=== PATIENT | female | born 1930 | race Caucasian/White ===

== ENCOUNTER 2017-02-22 22:41 | Observation (INO) | payer OTHER ==
[~2017-02-22] VITALS: Ht 149.9 cm; Wt 45.0 kg
[~2017-02-22 22:41] MED LIST: ADVA250A INH; ASPI81 PO; GABA100C4 PO; NITR.3 SL; PLAV75TA PO; TAB-TAB PO; TOPR25TA2 PO; VENTOLIN INHALER
[2017-02-22 22:48] VITALS: BP 197/81; PULSE 85; RESP 18; TEMP 98.3; O2SAT 92
--- NOTE | 2017-02-22 23:06 | PD ---
HPI Chief Complaint: Chest Pain Time Seen by Provider: 23:03 Travel History International Travel<30 days: No Contact w/Intl Traveler<30days: No Traveled to known affect area: No History of Present Illness HPI PCP IS RADHA, CARDIO IS [facility]. PT C/O CHEST PRESSURE, SUBSTERNAL, NONRAD, ONSET AT REST, ASSOC WITH DIAPHORESIS AND LASTED ABOUT 20MIN...CURRENTLY 0/10 (PT TOOK OWN ASA AND PLAVIX. PREVIOUS H/O 2 CARDIAC STENTS IN PAST PFSH Past Medical History Hx Anticoagulant Therapy: Yes Arthritis: Yes Asthma: Yes Autoimmune Disease: No Blood Disorders: No Heart Rhythm Problems: No Cancer: No Cardiac Catheterization: Yes Cardiovascular Problems: Yes High Cholesterol: No Chemotherapy: No Congestive Heart Failure: No Cerebrovascular Accident: No Diabetes: Yes (DIET CONTROLLED) Diminished Hearing: No Endocrine: No Glaucoma: Yes Genitourinary: No Headaches: Yes Hypertension: Yes Immune Disorder: No Musculoskeletal: Yes Neurologic: Yes Psychiatric: No Reproductive: No Respiratory: Yes Myocardial Infarction: Yes Tetanus Vaccination: < 5 Years Influenza Vaccination: No ?: Not Menopausal: Yes Past Surgical History Abdominal Surgery: No AICD: No Arteriovenous Shunt: No Cardiac Surgery: No Cholecystectomy: Yes Coronary Artery Bypass Graft: No Coronary Stent: Yes Ear Surgery: No Endocrine Surgery: No Eye Surgery: No Genitourinary Surgery: Yes (T-SLING SURGERY) Gynecologic Surgery: No Hysterectomy: Yes Insulin Pump: No Joint Replacement: No Oral Surgery: No Pacemaker: No Thoracic Surgery: No Other Surgery: Yes Social History Alcohol Use: No Tobacco Use: No Substance Use: No Allergies-Medications (Allergen,Severity, Reaction): Coded Allergies: Adhesives (Verified Allergy, Severe, 05/13/15) Naprosyn (Verified Allergy, Severe, 05/13/15) Neosporin (Verified Allergy, Severe, 05/13/15) Uncoded Allergies: MERTHIALATE (Allergy, Severe, RASH, 08/06/07) JUNIPER PRODUCTS (Allergy, Mild, Rash, 03/07/05) Reported Meds & Prescriptions Reported Meds & Active Scripts Active Reported Tums (Calcium Carbonate (Antacid)) 500 Mg Chew 500 Mg CHEW BID Multiple Vitamin 1 Tab 1 Tab PO DAILY Singulair (Montelukast Sodium) 10 Mg Tab 10 Mg PO HS Nitrostat SL (Nitroglycerin) 0.4 Mg Subl 0.4 Mg SL Lipitor (Atorvastatin Calcium) 80 Mg Tab 80 Mg PO HS Metoprolol Tartrate 25 Mg Tab 25 Mg PO BID Gabapentin 100 Mg Cap 100 Mg PO BID Advair Diskus Inh (Fluticasone-Salmeterol Inh) 250-50 Mcg/Blist Aer 1 Puff INH BID Rinse mouth after use. Plavix (Clopidogrel Bisulfate) 75 Mg Tab 75 Mg PO DAILY Aspirin 81 (Aspirin) 81 Mg Tabdr 81 Mg PO DAILY [Ventolin Inhaler] Review of Systems Except as stated in HPI: all other systems reviewed are Neg Cardiovascular: Positive: Chest Pain or Discomfort Physical Exam Narrative GENERAL: SKIN: Warm and dry. HEAD: Atraumatic. Normocephalic. EYES: Pupils equal and round. No scleral icterus. No injection or drainage. ENT: No nasal bleeding or discharge. Mucous membranes pink and moist. NECK: Trachea midline. No JVD. CARDIOVASCULAR: Regular rate and rhythm. RESPIRATORY: No accessory muscle use. Clear to auscultation. Breath sounds equal bilaterally. GASTROINTESTINAL: Abdomen soft, non-tender, nondistended. Hepatic and splenic margins not palpable. MUSCULOSKELETAL: Extremities without clubbing, cyanosis, or edema. No obvious deformities. NEUROLOGICAL: Awake and alert. No obvious cranial nerve deficits. Motor grossly within normal limits. Five out of 5 muscle strength in the arms and legs. Normal speech. PSYCHIATRIC: Appropriate mood and affect; insight and judgment normal. Data Data Last Documented VS Vital Signs Date Time Temp Pulse Resp B/P Pulse Ox O2 Delivery O2 Flow Rate FiO2 02/23/17 00:39 71 16 141/76 95 Nasal Cannula 2 02/22/17 22:48 98.3 Orders Electrocardiogram (02/22/17 23:03) B-Type Natriuretic Peptide (02/22/17 23:03) Ckmb (Isoenzyme) Profile (02/22/17 23:03) Complete Blood Count With Diff (02/22/17 23:03) Comprehensive Metabolic Panel (02/22/17 23:03) D-Dimer (02/22/17 23:03) Magnesium (Mg) (02/22/17 23:03) Prothrombin Time / Inr (Pt) (02/22/17 23:03) Act Partial Throm Time (Ptt) (02/22/17 23:03) Troponin I (02/22/17 23:03) Chest, Single Ap (02/22/17 23:03) Ecg Monitoring (02/22/17 23:03) Bilateral Bp Monitoring (02/22/17 23:03) Iv Access Insert/Monitor (02/22/17 23:03) Oximetry (02/22/17 23:03) Oxygen Administration (02/22/17 23:03) Sodium Chloride 0.9% Flush (Ns Flush) (02/22/17 23:15) Enalaprilat Inj (Vasotec Inj) (02/22/17 23:30) CKMB (02/22/17 23:20) CKMB% (02/22/17 23:20) Admit Order (Ed Use Only) (02/23/17 01:32) Labs Laboratory Tests Test 02/22/17 23:20 Prothrombin Time 10.7 SEC Prothromb Time International 1.0 RATIO Ratio Activated Partial 23.8 SEC Thromboplast Time D-Dimer Quantitative (PE/DVT) 1.17 MG/L FEU White Blood Count 7.3 TH/MM3 Red Blood Count 4.10 MIL/MM3 Hemoglobin 13.5 GM/DL Hematocrit 41.3 % Mean Corpuscular Volume 100.8 FL Mean Corpuscular Hemoglobin 33.0 PG Mean Corpuscular Hemoglobin 32.8 % Concent Red Cell Distribution Width 13.0 % Platelet Count 233 TH/MM3 Mean Platelet Volume 8.6 FL Neutrophils (%) (Auto) 56.0 % Lymphocytes (%) (Auto) 21.8 % Monocytes (%) (Auto) 11.8 % Eosinophils (%) (Auto) 9.6 % Basophils (%) (Auto) 0.8 % Neutrophils # (Auto) 4.1 TH/MM3 Lymphocytes # (Auto) 1.6 TH/MM3 Monocytes # (Auto) 0.9 TH/MM3 Eosinophils # (Auto) 0.7 TH/MM3 Basophils # (Auto) 0.1 TH/MM3 CBC Comment DIFF FINAL Differential Comment Sodium Level 140 MEQ/L Potassium Level 4.5 MEQ/L Chloride Level 103 MEQ/L Carbon Dioxide Level 32.9 MEQ/L Anion Gap 4 MEQ/L Blood Urea Nitrogen 21 MG/DL Creatinine 0.97 MG/DL Estimat Glomerular Filtration 54 ML/MIN Rate Random Glucose 107 MG/DL Calcium Level 8.7 MG/DL Magnesium Level 2.0 MG/DL Total Bilirubin 0.4 MG/DL Aspartate Amino Transf 38 U/L (AST/SGOT) Alanine Aminotransferase 29 U/L (ALT/SGPT) Alkaline Phosphatase 84 U/L Total Creatine Kinase 166 U/L Creatine Kinase MB 2.7 NG/ML Troponin I LESS THAN 0.02 NG/ML B-Type Natriuretic Peptide 66 PG/ML Total Protein 8.2 GM/DL Albumin 3.1 GM/DL MDM Medical Decision Making Medical Screen Exam Complete: Yes Emergency Medical Condition: Yes Medical Record Reviewed: Yes Interpretation(s) NSR 77, LBBB, NO CONCORDANCE Differential Diagnosis WI V NONSTEMI V PTX V PNA Narrative Course PT HAS HIGH RISK FACTORS AND PRESENTS WITH ACS LIKE CP, CXR DID NOT SHOW PTX OR PNA. WILL ADMIT FOR OBS CP R/O WI TO CARD HAND Diagnosis Primary Impression: CP R/O WI Admitting Information Admitting Physician Requests: Neno Alves MD Feb 22, 2017 23:06
[2017-02-22] MEDS ORDERED: SODIUM CHLORIDE 0.9% FLUSH 10 ML FLUSH IVF PRN (23:15)
[2017-02-22] MEDS ORDERED: ENALAPRILAT 1.25 MG/ML VIAL IV PUSH ONE (23:30)
[2017-02-22 23:37] LABS: AUTOMATED NEUTROPHIL # 4.1 TH/MM3 (1.8-7.7); BASOPHIL # 0.1 TH/MM3 (0-0.2); BASOPHIL % 0.8 % (0.0-2.0); EOSINOPHIL # 0.7 TH/MM3 (0-0.4); EOSINOPHIL % 9.6 % (0.0-4.0); HEMATOCRIT 41.3 % (35.0-46.0); HEMO FLAGS DIFF FINAL; LYMPH % 21.8 % (9.0-44.0); LYMPHOCYTE # 1.6 TH/MM3 (1.0-4.8); MEAN CELL VOLUME 100.8 FL (80.0-100.0); MEAN CORPUSCULAR HGB CONC 32.8 % (32.0-36.0); MONO % 11.8 % (0.0-8.0); PLATELET COUNT 233 TH/MM3 (150-450); WHITE BLOOD COUNT 7.3 TH/MM3 (4.0-11.0)
[2017-02-22 23:51] VITALS: RESP 16; O2SAT 97
[2017-02-22 23:55] LABS: APTT (PATIENT) 23.8 SEC (24.3-30.1); PROTHROMBIN TIME - PATIENT 10.7 SEC (9.8-11.6)
[2017-02-22 23:57] LABS: ALT (GPT) 29 U/L (10-53); ANION GAP 4 MEQ/L (5-15); AST (GOT) 38 U/L (15-37); BICARBONATE 32.9 MEQ/L (21.0-32.0); BLOOD UREA NITROGEN 21 MG/DL (7-18); CHLORIDE 103 MEQ/L (98-107); GLOMERULAR FILTRATION RATE 54 ML/MIN (>89); SODIUM (NA) 140 MEQ/L (136-145)
[2017-02-22 23:58] VITALS: BP_SYST 153; BP_DIAS 67; BP_DIAS 69
[2017-02-22 23:58] LABS: POTASSIUM 4.5 MEQ/L (3.5-5.1)
[2017-02-23 00:03] LABS: ALKALINE PHOSPHATASE 84 U/L (45-117); CREATINE KINASE 166 U/L (26-192); TOTAL BILIRUBIN ADULT 0.4 MG/DL (0.2-1.0)
[2017-02-23] MEDS ORDERED: PLAV75TA29 PO (00:10)
[2017-02-23] MEDS ORDERED: ADVA250A INH (00:10)
[2017-02-23] MEDS ORDERED: GABA100C4 PO (00:10)
[2017-02-23] MEDS ORDERED: METO25TA3 PO (00:10)
[2017-02-23] MEDS ORDERED: ASPI-110 PO (00:10)
[2017-02-23 00:17] LABS: CKMB 2.7 NG/ML (0.5-3.6)
--- NOTE | 2017-02-23 00:23 | RADRPT ---
EXAM DATE/TIME: 02/22/2017 23:36 [facility] COMPARISON: CHEST SINGLE AP, May 13, 2015, 23:19. INDICATIONS : Chest pain MEDICAL HISTORY : Myocardial infarction. SURGICAL HISTORY : : Peripheral vascular stent. ENCOUNTER: Initial ACUITY: 1 day PAIN SCORE: 0/10 LOCATION: chest FINDINGS: A single view of the chest demonstrates the lungs to be symmetrically aerated with worsening intersti tial changes probably representing some degree of fibrosis. There is some pleural calcifications late rally in the apices bilaterally, unchanged. No superimposed acute infiltrate. Possible old fracture d eformity in a lateral left rib. CONCLUSION: 1. Stable biapical pleural calcification. 2. Worsening bilateral fibrotic changes. 3. No superimposed acute infiltrate. Manuelito Washington MD on February 23, 2017 at 0:19 Board Certified Radiologist. This report was verified electronically.
[2017-02-23 00:39] VITALS: BP 141/76; PULSE 71; RESP 16; O2SAT 95
[2017-02-23] MEDS ORDERED: METOPROLOL TARTRATE 25 MG TAB PO SCH (01:45)
[2017-02-23] MEDS ORDERED: ONDANSETRON HCL 4 MG/2 ML VIAL IV PRN (01:45)
[2017-02-23] MEDS ORDERED: SODIUM CHLORIDE 0.9% FLUSH 10 ML FLUSH IV FLUSH PRN (01:45)
[2017-02-23] MEDS ORDERED: NITR0.4S SL (02:48)
[2017-02-23] MEDS ORDERED: LIPI80TA PO (02:48)
[2017-02-23] MEDS ORDERED: MONT10TA2 PO (02:50)
[2017-02-23] MEDS ORDERED: MULTTAB67 PO (02:50)
[2017-02-23] MEDS ORDERED: TUMS500C CHEW (02:51)
[2017-02-23 02:53] LABS: CREATINE KINASE 147 U/L (26-192)
[2017-02-23 03:05] LABS: CKMB 2.5 NG/ML (0.5-3.6)
[2017-02-23 05:53] VITALS: BP 167/72; PULSE 67; RESP 18; TEMP 97.9; O2SAT 98
[2017-02-23 06:05] VITALS: O2SAT 97
[2017-02-23 06:39] LABS: CREATINE KINASE 131 U/L (26-192)
[2017-02-23 06:58] LABS: CKMB 2.4 NG/ML (0.5-3.6)
[2017-02-23 07:30] VITALS: BP 168/72; PULSE 67; RESP 16; TEMP 97.5; O2SAT 97
[2017-02-23 08:00] VITALS: PULSE 73
[2017-02-23] MEDS ORDERED: NITROGLYCERIN 0.4 MG SL 25 TABS/BTL SL PRN (08:15)
[2017-02-23] MEDS ORDERED: ACETAMINOPHEN 500 MG CPLT PO PRN (08:15)
[2017-02-23] MEDS ORDERED: ASPIRIN 325 MG TAB PO SCH (09:00)
[2017-02-23] MEDS ORDERED: FAMOTIDINE 20 MG TAB PO SCH (09:00)
[2017-02-23] MEDS ORDERED: SODIUM CHLORIDE 0.9% FLUSH 10 ML FLUSH IV FLUSH SCH (09:00)
--- NOTE | 2017-02-23 10:56 | HHI.HP ---
HPI Primary Care Physician Cristhian Vargas MD Chief Complaint Sharp line of pain on skin of right chest History of Present Illness 86 y/o lady with known CAD s/p AMI 4 years ago. She was evaluated and [address] Zamarripa at [facility]. She is subsequently followed regularly by Dr. Evans and has been quite stable. Last night about 9 she felt sudden sharp pain described as "a line of pain on my skin" on the right chest. this was 4/ 10 severity and lasted off and on about 15 minutes. There were no prec or rel factors. She got up from watching TV and went to the kitchen and then noted some sweating and an unsure feeling. This sweating scared her because that is what she remembers from her heart attack four years ago. The pain subsequently went away as did the sweating and she feels fine now. She admits to anxiety about the pain. She also has severe vascular disease and has had interventions by Dr. Enoch White to her R&L groin and L carotid with a stent. Review of Systems Respiratory: COMPLAINS OF: Shortness of breath Cardiovascular: COMPLAINS OF: See HPI, Chest pain Past Family Social History Allergies: Coded Allergies: Adhesives (Verified Allergy, Severe, 05/13/15) Naprosyn (Verified Allergy, Severe, 05/13/15) Neosporin (Verified Allergy, Severe, 05/13/15) Uncoded Allergies: MERTHIALATE (Allergy, Severe, RASH, 08/06/07) JUNIPER PRODUCTS (Allergy, Mild, Rash, 03/07/05) Past Medical History arthritis asthma, COPD DM HTN glaucoma Past Surgical History Cholecystectomy T Sling Hysterectomy Stent L carotid Stent L groin, dilation R groin Reported Medications Reported Meds & Active Scripts Active Reported Tums (Calcium Carbonate (Antacid)) 500 Mg Chew 500 Mg CHEW BID Multiple Vitamin 1 Tab 1 Tab PO DAILY Singulair (Montelukast Sodium) 10 Mg Tab 10 Mg PO HS Nitrostat SL (Nitroglycerin) 0.4 Mg Subl 0.4 Mg SL Lipitor (Atorvastatin Calcium) 80 Mg Tab 80 Mg PO HS Metoprolol Tartrate 25 Mg Tab 25 Mg PO BID Gabapentin 100 Mg Cap 100 Mg PO BID Advair Diskus Inh (Fluticasone-Salmeterol Inh) 250-50 Mcg/Blist Aer 1 Puff INH BID Rinse mouth after use. Plavix (Clopidogrel Bisulfate) 75 Mg Tab 75 Mg PO DAILY Aspirin 81 (Aspirin) 81 Mg Tabdr 81 Mg PO DAILY [Ventolin Inhaler] Active Ordered Medications Current Medications Medications (Trade) Dose Ordered Sig/Renita Route Start Time Stop Time Status Last Admin (NS Flush) 2 ml UNSCH PRN IVF 02/22/17 23:15 (NS Flush) 2 ml UNSCH PRN IV FLUSH 02/23/17 01:45 (NS Flush) 2 ml BID IV FLUSH 02/23/17 09:00 02/23/17 08:31 (Zofran Inj) 4 mg Q6H PRN IV 02/23/17 01:45 (Pepcid) 20 mg BID PO 02/23/17 09:00 02/23/17 08:30 (Lopressor) 25 mg Q12H PO 02/23/17 01:45 02/23/17 02:18 (Aspirin) 325 mg DAILY PO 02/23/17 09:00 02/23/17 08:30 (Tylenol) 500 mg Q4H PRN PO 02/23/17 08:15 (Nitrostat Sl) 0.4 mg Q5M PRN SL 02/23/17 08:15 Family History father of CVA age 76 Mother of [place] and CVA age 87 Social History Stopped smoking in 2002 prior to that 08/21 PPD Physical Exam Vital Signs Vital Signs Date Time Temp Pulse Resp B/P Pulse Ox O2 Delivery O2 Flow Rate FiO2 02/23/17 08:00 73 02/23/17 07:30 97.5 67 16 168/72 97 02/23/17 07:18 Nasal Cannula 2.00 02/23/17 06:05 97 Nasal Cannula 2.00 02/23/17 05:53 97.9 67 18 167/72 98 02/23/17 00:39 71 16 141/76 95 Nasal Cannula 2 02/22/17 23:58 153/69 153/67 02/22/17 23:51 97 Room Air 02/22/17 23:51 16 97 Room Air 02/22/17 22:52 Room Air 02/22/17 22:48 98.3 85 18 197/81 92 Physical Exam GEN WNWD THIN SKIN WITH SL BRUISING HEENT GAGAN EOMI IOL BILATERAL NECK SUPPLE, BRUIT R SOFT L CHEST CLEAR BUT DECREASED BS WITHOUT RWR CV RSR NO GR BUT SOFT 1/6 S M ABD SOFT NT NO MGR EXT DISTAL PULSED DECREASED BUT PALP NEURO MOTOR INTACT AND EQUAL, CRANIAL GOOD, MEMORY INTACT Laboratory Laboratory Tests Test 02/22/17 02/23/17 02/23/17 23:20 02:20 05:45 Prothrombin Time 10.7 Prothromb Time International 1.0 Ratio Activated Partial 23.8 Thromboplast Time D-Dimer Quantitative (PE/DVT) 1.17 White Blood Count 7.3 Red Blood Count 4.10 Hemoglobin 13.5 Hematocrit 41.3 Mean Corpuscular Volume 100.8 Mean Corpuscular Hemoglobin 33.0 Mean Corpuscular Hemoglobin 32.8 Concent Red Cell Distribution Width 13.0 Platelet Count 233 Mean Platelet Volume 8.6 Neutrophils (%) (Auto) 56.0 Lymphocytes (%) (Auto) 21.8 Monocytes (%) (Auto) 11.8 Eosinophils (%) (Auto) 9.6 Basophils (%) (Auto) 0.8 Neutrophils # (Auto) 4.1 Lymphocytes # (Auto) 1.6 Monocytes # (Auto) 0.9 Eosinophils # (Auto) 0.7 Basophils # (Auto) 0.1 CBC Comment DIFF FINAL Differential Comment Sodium Level 140 Potassium Level 4.5 Chloride Level 103 Carbon Dioxide Level 32.9 Anion Gap 4 Blood Urea Nitrogen 21 Creatinine 0.97 Estimat Glomerular Filtration 54 Rate Random Glucose 107 Calcium Level 8.7 Magnesium Level 2.0 Total Bilirubin 0.4 Aspartate Amino Transf 38 (AST/SGOT) Alanine Aminotransferase 29 (ALT/SGPT) Alkaline Phosphatase 84 Total Creatine Kinase 166 147 131 Creatine Kinase MB 2.7 2.5 2.4 Troponin I LESS THAN 0.02 LESS THAN 0.02 LESS THAN 0.02 B-Type Natriuretic Peptide 66 Total Protein 8.2 Albumin 3.1 Result Diagram: 02/22/17 2320 02/22/17 232 Imaging INCREASING PULMONARY FIBROSIS Course HAS R/O FOR ACUTE ISCHEMIA AND IS PAIN FREE Assessment and Plan Assessment and Plan 1. KNOWN CAD 2. ATYPICAL CP SHE HAS RULED OUT FOR ACUTE ISCHEMIA AND IS FOLLOWED CLOSELY BY DR. EVANS SO FU THIS COMING WEEK IS FELT TO BE APPROPRIATE 3. PERIPHERAL VASCULAR DISEASE POST INTERVENTION BY DR WHITE 4. CAD POST INTERVENTION 5. DM 6. COPD 7. GLAUCOMA Dhiraj Walls MD Feb 23, 2017 10:56
[2017-02-23 11:31] VITALS: BP 153/66; PULSE 70; RESP 16; TEMP 97.7; O2SAT 97
--- NOTE | 2017-02-23 11:38 | HHI.DCPOC ---
Discharge Care Plan Diagnosis: (1) Atypical chest pain (2) Hx of coronary artery disease Goals to Promote Your Health * To prevent worsening of your condition and complications * To maintain your health at the optimal level Directions to Meet Your Goals Take your medications as prescribed Follow your dietary instruction Follow activity as directed Keep your appointments as scheduled Take your immunizations and boosters as scheduled If your symptoms worsen call your PCP, if no PCP go to Urgent Care Center or Emergency Room Smoking is Dangerous to Your Health. Avoid second hand smoke Call the 24-hour hour crisis hotline for domestic abuse at Maty MartiniP Feb 23, 2017 11:38
--- NOTE | 2017-02-23 13:03 | EKG ---
Date Performed: 02/23/2017 Time Performed: 05:59:42 PTAGE: 86 years EKG: Sinus rhythm LEFT BUNDLE BRANCH BLOCK ABNORMAL ECG PREVIOUS TRACING : 02/23/2017 02.21 Since previous tracing, no significant change noted DOCTOR: Keo Coy Interpretating Date/Time 02/23/2017 13:01:25
--- NOTE | 2017-02-23 13:04 | EKG ---
Date Performed: 02/23/2017 Time Performed: 02:21:51 PTAGE: 86 years EKG: Sinus rhythm LEFT BUNDLE BRANCH BLOCK ABNORMAL ECG PREVIOUS TRACING : 02/22/2017 22.51 Since previous tracing, no significant change noted DOCTOR: Keo Coy Interpretating Date/Time 02/23/2017 13:02:32
--- NOTE | 2017-02-23 13:06 | EKG ---
Date Performed: 02/22/2017 Time Performed: 22:51:33 PTAGE: 86 years EKG: Sinus rhythm LEFT BUNDLE BRANCH BLOCK ABNORMAL ECG PREVIOUS TRACING : 05/14/2015 05.14 Since previous tracing, no significant change noted DOCTOR: Keo Coy Interpretating Date/Time 02/23/2017 13:04:57
== END 2017-02-23 12:10 | disposition home or self-care (01) ==
LOC: NEPC 22:41 → NEDA 02-23 01:34 → NEPFCDU 02-23 02:31
PROVIDERS: ADMIT Internal Medicine Interventional Cardiology; ATTEND Internal Medicine Interventional Cardiology
DX: R07.89 Other chest pain (principal); I25.10 Atherosclerotic heart disease of native coronary artery without angina pectoris; R61 Generalized hyperhidrosis; F41.9 Anxiety disorder, unspecified; R06.02 Shortness of breath; I44.7 Left bundle-branch block, unspecified; R94.31 Abnormal electrocardiogram [ECG] [EKG]; J94.8 Other specified pleural conditions; J84.10 Pulmonary fibrosis, unspecified; R09.89 Other specified symptoms and signs involving the circulatory and respiratory systems; I10 Essential (primary) hypertension; I25.2 Old myocardial infarction; I73.9 Peripheral vascular disease, unspecified; E11.9 Type 2 diabetes mellitus without complications; J44.9 Chronic obstructive pulmonary disease, unspecified; H40.9 Unspecified glaucoma; M19.90 Unspecified osteoarthritis, unspecified site; Z95.5 Presence of coronary angioplasty implant and graft; Z79.899 Other long term (current) drug therapy; Z79.82 Long term (current) use of aspirin; Z79.02 Long term (current) use of antithrombotics/antiplatelets; Z87.891 Personal history of nicotine dependence
CPT/HCPCS: 71010; 80053; 82550; 82552; 83735; 83880; 84484; 85025; 85379; 85610; 85730; 93005; 99285; G0378

== ENCOUNTER 2017-04-13 10:36 | Observation (INO) | payer OTHER ==
[~2017-04-13] VITALS: Ht 149.9 cm; Wt 44.1 kg
[2017-04-13] VITALS (12 sets, daily range): BP systolic 86–177; BP diastolic 42–73; PULSE 63–83; RESP 12–17; TEMP 97.8–98.6; O2SAT 96–99
[~2017-04-13 10:36] MED LIST changes: +ASPI-110 PO; -ASPI81 PO; +LIPI80TA PO; +METO25TA3 PO; +MONT10TA2 PO; +MULTTAB67 PO; -NITR.3 SL; +NITR0.4S SL; -PLAV75TA PO; +PLAV75TA29 PO; -TAB-TAB PO; -TOPR25TA2 PO; +TUMS500C CHEW
[2017-04-13] MEDS ORDERED: SODIUM CHLORIDE 0.9% FLUSH 10 ML FLUSH IVF PRN (11:15)
--- NOTE | 2017-04-13 11:16 | PD ---
HPI Chief Complaint: Chest Pain Time Seen by Provider: 11:02 Travel History International Travel<30 days: No Contact w/Intl Traveler<30days: No Traveled to known affect area: No History of Present Illness HPI This patient called paramedics because she was feeling weak and shaky. Duration one day. She reports that yesterday she had some discomfort in her chest rather diffusely. Not pleuritic or exertional. That has resolved and did not recur today. Has history of CAD and 4 stents. Symptoms severity is moderate. No alleviating factors. Fire department thought she was a STEMI alert but further evaluation she clearly is not a STEMI alert. Her EKG is the same as it was at last visit. Her left bundle-branch block is not new. She is absolutely chest pain-free and not a STEMI. PFSH Past Medical History Hx Anticoagulant Therapy: Yes Arthritis: Yes Asthma: Yes Autoimmune Disease: No Blood Disorders: No Heart Rhythm Problems: No Cancer: No Cardiac Catheterization: Yes Cardiovascular Problems: Yes High Cholesterol: No Chemotherapy: No Congestive Heart Failure: No Cerebrovascular Accident: No Diabetes: Yes Diminished Hearing: No Endocrine: No Glaucoma: Yes Genitourinary: No Headaches: Yes Hypertension: Yes Immune Disorder: No Musculoskeletal: Yes Neurologic: Yes Psychiatric: No Reproductive: No Respiratory: Yes Myocardial Infarction: Yes ?: Not Menopausal: Yes Past Surgical History Abdominal Surgery: No AICD: No Arteriovenous Shunt: No Cardiac Surgery: No Cholecystectomy: Yes Coronary Artery Bypass Graft: No Coronary Stent: Yes Ear Surgery: No Endocrine Surgery: No Eye Surgery: No Genitourinary Surgery: Yes (T-SLING SURGERY) Gynecologic Surgery: No Hysterectomy: Yes Insulin Pump: No Joint Replacement: No Oral Surgery: No Pacemaker: No Thoracic Surgery: No Other Surgery: Yes Social History Alcohol Use: No Tobacco Use: No Substance Use: No Allergies-Medications (Allergen,Severity, Reaction): Coded Allergies: adhesive (Unverified Allergy, Severe, 04/13/17) bacitracin (Unverified Allergy, Severe, 04/13/17) gramicidin D (Unverified Allergy, Severe, 04/13/17) naproxen (Unverified Allergy, Severe, 04/13/17) neomycin (Unverified Allergy, Severe, 04/13/17) polymyxin B (Unverified Allergy, Severe, 04/13/17) latex (Verified Allergy, Mild, Rash, 04/13/17) Uncoded Allergies: MERTHIALATE (Allergy, Severe, RASH, 08/06/07) JUNIPER PRODUCTS (Allergy, Mild, Rash, 03/07/05) Reported Meds & Prescriptions Reported Meds & Active Scripts Active Reported Tums (Calcium Carbonate (Antacid)) 500 Mg Chew 500 Mg CHEW BID Multiple Vitamin 1 Tab 1 Tab PO DAILY Singulair (Montelukast Sodium) 10 Mg Tab 10 Mg PO HS Nitrostat SL (Nitroglycerin) 0.4 Mg Subl 0.4 Mg SL Lipitor (Atorvastatin Calcium) 80 Mg Tab 80 Mg PO HS Metoprolol Tartrate 25 Mg Tab 25 Mg PO BID Gabapentin 100 Mg Cap 100 Mg PO BID Advair Diskus Inh (Fluticasone-Salmeterol Inh) 250-50 Mcg/Blist Aer 1 Puff INH BID Rinse mouth after use. Plavix (Clopidogrel Bisulfate) 75 Mg Tab 75 Mg PO DAILY Aspirin 81 (Aspirin) 81 Mg Tabdr 81 Mg PO DAILY [Ventolin Inhaler] Review of Systems General / Constitutional: No: Fever Eyes: No: Visual changes HENT: No: Headaches Cardiovascular: Positive: Chest Pain or Discomfort Respiratory: No: Shortness of Breath Gastrointestinal: No: Abdominal Pain Genitourinary: No: Dysuria Musculoskeletal: Positive: Weakness, No: Pain Skin: No Rash Neurologic: Positive: Weakness Psychiatric: No: Depression Endocrine: No: Polydipsia Hematologic/Lymphatic: No: Easy Bruising Physical Exam Narrative GENERAL: Well-nourished, well-developed patient in no apparent distress. SKIN: Focused skin assessment reveals no rash and nodules. Skin is Warm and dry. HEAD: Atraumatic. Normocephalic. EYES: Pupils equal and round. No scleral icterus. No injection or drainage. ENT: No nasal bleeding or discharge. Mucous membranes pink and moist. NECK: Trachea midline. No JVD. CARDIOVASCULAR: Regular rate and rhythm. No murmur appreciated. RESPIRATORY: No accessory muscle use. Clear to auscultation. Breath sounds equal bilaterally. GASTROINTESTINAL: Abdomen soft, non-tender, nondistended. Hepatic and splenic margins not palpable. MUSCULOSKELETAL: No obvious deformities. No clubbing. No cyanosis. No edema. NEUROLOGICAL: Awake and alert. No obvious cranial nerve deficits. Motor grossly within normal limits. Normal speech. PSYCHIATRIC: Appropriate mood and affect; insight and judgment normal. Data Data Last Documented VS Vital Signs Date Time Temp Pulse Resp B/P (MAP) Pulse Ox O2 Delivery O2 Flow Rate FiO2 04/13/17 13:03 68 16 169/70 (103) 99 04/13/17 11:20 Nasal Cannula 1.00 04/13/17 11:12 97.9 Orders Orders Electrocardiogram (04/13/17 11:11) Basic Metabolic Panel (Bmp) (04/13/17 11:11) Ckmb (Isoenzyme) Profile (04/13/17 11:11) Complete Blood Count With Diff (04/13/17 11:11) Prothrombin Time / Inr (Pt) (04/13/17 11:11) Act Partial Throm Time (Ptt) (04/13/17 11:11) Troponin I (04/13/17 11:11) Chest, Single Ap (04/13/17 11:11) Ecg Monitoring (04/13/17 11:11) Iv Access Insert/Monitor (04/13/17 11:11) Oximetry (04/13/17 11:11) Sodium Chloride 0.9% Flush (Ns Flush) (04/13/17 11:15) CKMB (04/13/17 11:00) CKMB% (04/13/17 11:00) Admit Order (Ed Use Only) (04/13/17 13:12) Labs Laboratory Tests Test 04/13/17 11:00 White Blood Count 9.6 TH/MM3 Red Blood Count 3.88 MIL/MM3 Hemoglobin 13.3 GM/DL Hematocrit 39.1 % Mean Corpuscular Volume 100.8 FL Mean Corpuscular Hemoglobin 34.1 PG Mean Corpuscular Hemoglobin Concent 33.9 % Red Cell Distribution Width 12.4 % Platelet Count 257 TH/MM3 Mean Platelet Volume 8.1 FL Neutrophils (%) (Auto) 76.6 % Lymphocytes (%) (Auto) 12.5 % Monocytes (%) (Auto) 7.5 % Eosinophils (%) (Auto) 2.8 % Basophils (%) (Auto) 0.6 % Neutrophils # (Auto) 7.4 TH/MM3 Lymphocytes # (Auto) 1.2 TH/MM3 Monocytes # (Auto) 0.7 TH/MM3 Eosinophils # (Auto) 0.3 TH/MM3 Basophils # (Auto) 0.1 TH/MM3 CBC Comment DIFF FINAL Differential Comment Prothrombin Time 11.0 SEC Prothromb Time International Ratio 1.0 RATIO Activated Partial Thromboplast Time 27.6 SEC Blood Urea Nitrogen 13 MG/DL Creatinine 0.85 MG/DL Random Glucose 95 MG/DL Calcium Level 8.5 MG/DL Sodium Level 135 MEQ/L Potassium Level 4.1 MEQ/L Chloride Level 98 MEQ/L Carbon Dioxide Level 29.5 MEQ/L Anion Gap 8 MEQ/L Estimat Glomerular Filtration Rate 63 ML/MIN Total Creatine Kinase 110 U/L Creatine Kinase MB 3.0 NG/ML Troponin I LESS THAN 0.02 NG/ML MDM Medical Decision Making Medical Screen Exam Complete: Yes Emergency Medical Condition: Yes Medical Record Reviewed: Yes Differential Diagnosis STEMI alert, ACS, GERD, anxiety Narrative Course I have reviewed the patient's electronic medical record. Reviewed her February admission for chest pain She had negative enzymes 3 and discharged, no stress testing done IV placed I reviewed the EKG which shows sinus rhythm with left bundle-branch block which is chronic. I reviewed the chest x-ray is stable Extended cardiac monitoring shows sinus rhythm without ectopy CBC is normal Metabolic profile is normal CK is normal Troponin is normal Coagulation studies are normal Patient had aspirin and Plavix today. Still pain free. ER workup is negative. She did have 3:30 minutes spells of chest discomfort yesterday I'm going to place her in the chest pain center to rule out cardiac cause of her symptoms. I did place a call to her contracts paralegal Dr. Iván Evans to discuss but we are told by his office that he is unavailable. Diagnosis Primary Impression: Atypical chest pain Additional Impression: Hx of coronary artery disease Admitting Information Admitting Physician Requests: Observation Paul Dixon MD Apr 13, 2017 11:16
[2017-04-13 11:51] LABS: AUTOMATED NEUTROPHIL # 7.4 TH/MM3 (1.8-7.7); BASOPHIL # 0.1 TH/MM3 (0-0.2); BASOPHIL % 0.6 % (0.0-2.0); EOSINOPHIL # 0.3 TH/MM3 (0-0.4); EOSINOPHIL % 2.8 % (0.0-4.0); HEMATOCRIT 39.1 % (35.0-46.0); HEMO FLAGS DIFF FINAL; LYMPH % 12.5 % (9.0-44.0); LYMPHOCYTE # 1.2 TH/MM3 (1.0-4.8); MEAN CELL VOLUME 100.8 FL (80.0-100.0); MEAN CORPUSCULAR HEMOGLOBIN 34.1 PG (27.0-34.0); MEAN CORPUSCULAR HGB CONC 33.9 % (32.0-36.0); MONO % 7.5 % (0.0-8.0); NEUT % 76.6 % (16.0-70.0); PLATELET COUNT 257 TH/MM3 (150-450); RED BLOOD COUNT 3.88 MIL/MM3 (4.00-5.30); RED CELL DISTRIBUTION WIDTH 12.4 % (11.6-17.2); WHITE BLOOD COUNT 9.6 TH/MM3 (4.0-11.0)
[2017-04-13 11:57] LABS: APTT (PATIENT) 27.6 SEC (24.3-30.1)
--- NOTE | 2017-04-13 12:02 | RADRPT ---
EXAM DATE/TIME: 04/13/2017 11:20 [facility] COMPARISON: CHEST SINGLE AP, May 13, 2015, 23:19. CHEST SINGLE AP, February 22, 2017, 23:36. INDICATIONS : Chest pain, shortness of breath. MEDICAL HISTORY : Hypertension. Diabetes mellitus type II. Myocardial infarction. SURGICAL HISTORY : Coronary artery stent. ENCOUNTER: Initial ACUITY: 2 days PAIN SCORE: 3/10 LOCATION: Bilateral chest FINDINGS: Portable AP view of the chest demonstrates a normal-sized cardiac silhouette with calcification of th e aorta. There is biapical scar with biapical pleural-based calcification. Interstitial opacities are present in the lower lung zones bilaterally. No effusion or pneumothorax identified. Bones and soft tissues demonstrate no acute finding. Cholecystectomy clips are present. CONCLUSION: Stable chest x-ray with biapical pleural thickening with calcification and interstitial lung changes in the lower lung zones. No acute finding is identified. William Sweeney MD on April 13, 2017 at 11:59 Board Certified Radiologist. This report was verified electronically.
[2017-04-13 12:08] LABS: CREATINE KINASE 110 U/L (26-192)
[2017-04-13 12:17] LABS: ANION GAP 8 MEQ/L (5-15); BICARBONATE 29.5 MEQ/L (21.0-32.0); BLOOD UREA NITROGEN 13 MG/DL (7-18); CHLORIDE 98 MEQ/L (98-107); GLOMERULAR FILTRATION RATE 63 ML/MIN (>89); POTASSIUM 4.1 MEQ/L (3.5-5.1); SODIUM (NA) 135 MEQ/L (136-145)
[2017-04-13] MEDS ORDERED: ACETAMINOPHEN 500 MG CPLT PO PRN (14:00)
--- NOTE | 2017-04-13 15:11 | HHI.HP ---
HPI Primary Care Physician Cristhian Vargas MD Chief Complaint Chest pain, generalized weakness Review of Systems General: Generalized weakness in legs, states she feels uneasy like she may fall. No fever, chills, or recent illness. No falls. HEENT: Last Sunday reported brief episode of blurred vision while driving. No other symptoms accompanied blurred vision. History of ocular migraines. No current GALVAN, no dysphasia. CV: As stated above. No current CP or pressure. RESP: No SOB, cough, wheeze, or sputum production. O2/1L nasal cannula at home on most days, history of COPD. GI: History or GERD and reports "a lot of burping x2 days." No nausea, vomiting , bowel changes, diarrhea, or constipation. No change in appetite, no unintentional weight gain or weight loss. : No dysuria, urgency, frequency, or frequent UTI. EXT: No lower leg edema, no paraesthesias MS: Ambulated obsessional with a cane, using the walker more lately. No discomfort or change in ROM NEURO: No difficulty with balance but states "I feel like I could fall so I use a cane or walker." No LOC, motor/sensory deficits PSYCH: History of anxiety, recently given a prescription by PCP for anti anxiety medication on Sunday. Cannot recall the name of medication. No depression SKIN: No rashes, no concerning lesions Past Family Social History Allergies: Coded Allergies: adhesive (Unverified Allergy, Severe, 04/13/17) bacitracin (Unverified Allergy, Severe, 04/13/17) gramicidin D (Unverified Allergy, Severe, 04/13/17) naproxen (Unverified Allergy, Severe, 04/13/17) neomycin (Unverified Allergy, Severe, 04/13/17) polymyxin B (Unverified Allergy, Severe, 04/13/17) latex (Verified Allergy, Mild, Rash, 04/13/17) Uncoded Allergies: MERTHIALATE (Allergy, Severe, RASH, 08/06/07) JUNIPER PRODUCTS (Allergy, Mild, Rash, 03/07/05) Past Medical History Asthma, COPD, DM, HTN, glaucoma, arthritis, CAD Past Surgical History Cholecystectomy, hysterectomy, Stent left carotid, Stent L groin dilation R groin Reported Medications Active Reported Tums (Calcium Carbonate (Antacid)) 500 Mg Chew 500 Mg CHEW BID Multiple Vitamin 1 Tab 1 Tab PO DAILY Singulair (Montelukast Sodium) 10 Mg Tab 10 Mg PO HS Nitrostat SL (Nitroglycerin) 0.4 Mg Subl 0.4 Mg SL Lipitor (Atorvastatin Calcium) 80 Mg Tab 80 Mg PO HS Metoprolol Tartrate 25 Mg Tab 25 Mg PO BID Gabapentin 100 Mg Cap 100 Mg PO BID Advair Diskus Inh (Fluticasone-Salmeterol Inh) 250-50 Mcg/Blist Aer 1 Puff INH BID Rinse mouth after use. Plavix (Clopidogrel Bisulfate) 75 Mg Tab 75 Mg PO DAILY Aspirin 81 (Aspirin) 81 Mg Tabdr 81 Mg PO DAILY [Ventolin Inhaler] Anti anxiety medication (Name unknown) recently ordered on Sunday Active Ordered Medications Current Medications Medications (Trade) Dose Ordered Sig/Renita Route Start Time Stop Time Status Last Admin (NS Flush) 2 ml UNSCH PRN IVF 04/13/17 11:15 (NS Flush) 2 ml BID IV FLUSH 04/13/17 21:00 (Tylenol) 500 mg Q4H PRN PO 04/13/17 14:00 Social History Known hypertension. No known diabetes or hyperlipidemia. Currently taking statin therapy-hx of CAD Quit smoking 2002. Smoked 1/2 pack/daily. No alcohol or illegal drug use. , Lives independently. Past Cardiac Testing 2012 x2 cardiac stents placed by Dr. Dallin Ruff. Reports after catheterization done her and evaluated by cardio surgeon she was transferred to [place] for x2 stents. Patient's python developer is Dr. Iván Evans. No recent cardiac testing. Physical Exam Vital Signs Vital Signs Date Time Temp Pulse Resp B/P (MAP) Pulse Ox O2 Delivery O2 Flow Rate FiO2 04/13/17 13:56 72 16 172/68 (102) 97 Nasal Cannula 1.00 04/13/17 13:03 68 16 169/70 (103) 99 04/13/17 11:20 73 15 173/72 (105) 96 Nasal Cannula 1.00 04/13/17 11:12 70 98 Nasal Cannula 1.00 04/13/17 11:12 97.9 71 16 173/73 (106) 97 Nasal Cannula 1.00 04/13/17 11:00 97.9 70 16 173/73 (106) 99 Physical Exam GENERAL: Alert WN, WD, NAD, thin, elderly female HEAD: NC, AT EYES: Sclera clear, conjunctiva without injection, pupils equal and round ENT: Mucous membranes pink and moist NECK: Supple, no masses, trachea midline CV: RRR, without murmur, rub, gallop, no JVD, S1-S2 no S3-S4. R carotid bruits > L carotid bruit RESP: Clear lungs throughout bilateral, no crackles, wheeze, rhonchi, symmetrical chest rise, nonlabored, able to speak in full sentences ABD: Soft, NT, ND, no masses, positive bowel tones EXT: Pulses +24, no dependent edema MS: Normal tone 4 extremities, nontender, no obvious deformities, full range of motion NEURO: CN II through CN XII grossly intact, motor strength 5/5 PSYCH: A+O 3, pleasant affect, appropriate speech, appropriate mood and affect , insight and judgment SKIN: Normal turgor, normal texture Laboratory Laboratory Tests Test 04/13/17 11:00 White Blood Count 9.6 Red Blood Count 3.88 Hemoglobin 13.3 Hematocrit 39.1 Mean Corpuscular Volume 100.8 Mean Corpuscular Hemoglobin 34.1 Mean Corpuscular Hemoglobin Concent 33.9 Red Cell Distribution Width 12.4 Platelet Count 257 Mean Platelet Volume 8.1 Neutrophils (%) (Auto) 76.6 Lymphocytes (%) (Auto) 12.5 Monocytes (%) (Auto) 7.5 Eosinophils (%) (Auto) 2.8 Basophils (%) (Auto) 0.6 Neutrophils # (Auto) 7.4 Lymphocytes # (Auto) 1.2 Monocytes # (Auto) 0.7 Eosinophils # (Auto) 0.3 Basophils # (Auto) 0.1 CBC Comment DIFF FINAL Differential Comment Prothrombin Time 11.0 Prothromb Time International Ratio 1.0 Activated Partial Thromboplast Time 27.6 Blood Urea Nitrogen 13 Creatinine 0.85 Random Glucose 95 Calcium Level 8.5 Sodium Level 135 Potassium Level 4.1 Chloride Level 98 Carbon Dioxide Level 29.5 Anion Gap 8 Estimat Glomerular Filtration Rate 63 Total Creatine Kinase 110 Creatine Kinase MB 3.0 Troponin I LESS THAN 0.02 Result Diagram: 04/13/17 1100 04/13/17 1100 Imaging Last Impressions Chest X-Ray 04/13/17 1111 Signed Impressions: Service Date/Time: Martin, April 13, 2017 11:20 - CONCLUSION: Stable chest x-ray with biapical pleural thickening with calcification and interstitial lung changes in the lower lung zones. No acute finding is identified. William Sweeney MD Course EKG NSR, L BBB (compared to past EKG-not new) Caprini VTE Risk Assessment Caprini VTE Risk Assessment: Mod/High Risk (score >= 2) Caprini Risk Assessment Model Point Value = 1 Point Value = 2 Point Value = 3 Point Value = 5 Age 41-60 Minor surgery BMI > 25 kg/m2 Swollen legs Varicose veins or History of unexplained or recurrent spontaneous Oral contraceptives or hormone replacement Sepsis (< 1 month) Serious lung disease, including pneumonia (< 1 month) Abnormal pulmonary function Acute myocardial infarction Congestive heart failure (< 1 month) History of inflammatory bowel disease Medical patient at bed rest Age 61-74 Arthroscopic surgery Major open surgery (> 45 min) Laparoscopic surgery (> 45 min) Malignancy Confined to bed (> 72 hours) Immobilizing plaster cast Central venous access Age >= 75 History of VTE Family history of VTE Factor V Leiden Prothrombin [id number] Lupus anticoagulant Anticardiolipin antibodies Elevated serum homocysteine Heparin-induced thrombocytopenia Other congenital or acquired thrombophilia Stroke (< 1 month) Elective arthroplasty Hip, pelvis, or leg fracture Acute spinal cord injury (< 1 month) Prophylaxis Regimen Total Risk Factor Score Risk Level Prophylaxis Regimen 0-1 Low Early ambulation 2 Moderate Order ONE of the following: *Sequential Compression Device (SCD) *Heparin 5000 units SQ BID 3-4 Higher Order ONE of the following medications: *Heparin 5000 units SQ TID *Enoxaparin/Lovenox 40 mg SQ daily (WT < 150 kg, CrCl > 30 mL/min) *Enoxaparin/Lovenox 30 mg SQ daily (WT < 150 kg, CrCl > 10-29 mL/min) *Enoxaparin/Lovenox 30 mg SQ BID (WT < 150 kg, CrCl > 30 mL/min) AND/OR *Sequential Compression Device (SCD) 5 or more Highest Order ONE of the following medications: *Heparin 5000 units SQ TID (Preferred with Epidurals) *Enoxaparin/Lovenox 40 mg SQ daily (WT < 150 kg, CrCl > 30 mL/min) *Enoxaparin/Lovenox 30 mg SQ daily (WT < 150 kg, CrCl > 10-29 mL/min) *Enoxaparin/Lovenox 30 mg SQ BID (WT < 150 kg, CrCl > 30 mL/min) AND *Sequential Compression Device (SCD) Assessment and Plan Assessment and Plan #1 Atypical chest pain-admitted to chest pain center. Ruled out with 3 sets of EKGs, cardiac enzymes, monitor overnight. Evaluated by Dr. Keo barcenas. If ruled out proceed with chemical stress testing in am. #2 COPD-continue o2/1L, Advair inhaler, Singulair #3 History of CAD-continue metoprolol, asa, Plavix, and Lipitor #4 GERD-start PPI, continue Maty Conrad Apr 13, 2017 15:11
[2017-04-13 15:50] LABS: CREATINE KINASE 110 U/L (26-192)
[2017-04-13 16:03] LABS: CKMB 3.1 NG/ML (0.5-3.6)
[2017-04-13] MEDS: PANTOPRAZOLE SOD 20 MG DELAYED RELEASE TAB PO SCH (16:42)
[2017-04-13] MEDS: CLOPIDOGREL 75 MG TAB PO SCH (16:42)
[2017-04-13] MEDS: MULTIVITAMIN TAB PO SCH (16:42)
[2017-04-13 17:43] LABS: CREATINE KINASE 120 U/L (26-192)
[2017-04-13] MEDS ORDERED: ATORVASTATIN 80 MG TAB PO SCH (21:00)
[2017-04-13] MEDS ORDERED: MONTELUKAST SODIUM 10 MG TAB PO SCH (21:00)
[2017-04-13] MEDS: CALCIUM CARBONATE 500 MG CHEWABLE TAB CHEW SCH (21:23)
[2017-04-13] MEDS: GABAPENTIN 100 MG CAP PO SCH (21:23)
[2017-04-13] MEDS: SODIUM CHLORIDE 0.9% FLUSH 10 ML FLUSH IV FLUSH SCH (21:23)
[2017-04-13] MEDS: BUDESONIDE-FORMOTEROL 160/4.5 MCG INHALER INH SCH (21:23)
[2017-04-13] MEDS: METOPROLOL TARTRATE 25 MG TAB PO SCH (21:24)
[2017-04-14 00:05] VITALS: PULSE 59
[2017-04-14 03:55] VITALS: BP 130/58; PULSE 65; RESP 17; TEMP 98.1; O2SAT 94
[2017-04-14 04:05] VITALS: PULSE 63
[2017-04-14 07:12] VITALS: BP 149/65; PULSE 71; RESP 16; TEMP 97.8; O2SAT 95
[2017-04-14] MEDS: BUDESONIDE-FORMOTEROL 160/4.5 MCG INHALER INH SCH (08:13)
[2017-04-14] MEDS: METOPROLOL TARTRATE 25 MG TAB PO SCH (08:13)
[2017-04-14] MEDS: CALCIUM CARBONATE 500 MG CHEWABLE TAB CHEW SCH (08:13)
[2017-04-14] MEDS: GABAPENTIN 100 MG CAP PO SCH (08:14)
[2017-04-14] MEDS: PANTOPRAZOLE SOD 20 MG DELAYED RELEASE TAB PO SCH (08:14)
[2017-04-14] MEDS: MULTIVITAMIN TAB PO SCH (08:14)
[2017-04-14] MEDS: CLOPIDOGREL 75 MG TAB PO SCH (08:14)
[2017-04-14] MEDS: SODIUM CHLORIDE 0.9% FLUSH 10 ML FLUSH IV FLUSH SCH (08:17)
--- NOTE | 2017-04-14 08:47 | EKG ---
Date Performed: 04/13/2017 Time Performed: 16:54:16 PTAGE: 86 years EKG: Sinus rhythm LEFT BUNDLE BRANCH BLOCK ABNORMAL ECG PREVIOUS TRACING : 04/13/2017 16.02 Since previous tracing, no significant change noted DOCTOR: Keo Coy Interpretating Date/Time 04/14/2017 08:46:47
--- NOTE | 2017-04-14 08:47 | EKG ---
Date Performed: 04/13/2017 Time Performed: 16:01:00 PTAGE: 86 years EKG: Sinus rhythm LEFT BUNDLE BRANCH BLOCK ABNORMAL ECG INTERPRETATION BASED ON A DEFAULT AGE OF 40 YEARS NO PREVIOUS TRACING DOCTOR: Keo Coy Interpretating Date/Time 04/14/2017 08:46:56
--- NOTE | 2017-04-14 08:48 | EKG ---
Date Performed: 04/13/2017 Time Performed: 10:59:04 PTAGE: 86 years EKG: Sinus rhythm WITH OCCASIONAL SUPRAVENTRICULAR PREMATURE COMPLEXES LEFT BUNDLE BRANCH BLOCK ABNORMAL ECG PREVIOUS TRACING : 02/23/2017 05.59 Since previous tracing, no significant change noted DOCTOR: Keo Coy Interpretating Date/Time 04/14/2017 08:47:37
[2017-04-14] MEDS ORDERED: REGADENOSON INJ 0.4 MG/5 ML SYR ONE (09:31)
[2017-04-14 10:33] VITALS: PULSE 75
--- NOTE | 2017-04-14 11:04 | RADRPT ---
EXAM DATE/TIME: 04/14/2017 09:00 [facility] COMPARISON: No previous studies available for comparison. INDICATIONS : Chest pain. Left bundle branch block. Myocardial infarction. DOSE: 25.6 mCi Tc99m Myoview at stress. 8.1 mCi Tc99m Myoview at rest. 0.4 mg Lexiscan STRESS SYMPTOMS: Headache and chest pressure. EJECTION FRACTION: 59% MEDICAL HISTORY : Cardiovascular disease. Diabetes mellitus type 2. Chronic obstructive pulmonary disease. SURGICAL HISTORY : Coronary artery stent. ENCOUNTER: Initial ACUITY: 1 day PAIN SCALE: 2/10 LOCATION: Bilateral chest TECHNIQUE: The patient underwent pharmacologic stress with infusion of prescribed dose. Continuous ECG tracing was monitored during stress. Gated SPECT imaging was performed after stress and conventional SPECT i maging was performed at rest. The examination was performed on a SPECT/CT scanner, both attenuation and non-corrected datasets were reviewed. FINDINGS: DISTRIBUTION: The maximum perfused segment at stress is in the anterior wall. PERFUSION STUDY: The pattern of perfusion at stress is within normal limits. GATED STUDY: There is intact wall motion and thickening without hypokinetic or dyskinetic segments. CONCLUSION: Negative. No stress-induced ischemia. Wall motion within normal limits. RISK CATEGORY: Low William Wing MD on April 14, 2017 at 10:58 Board Certified Radiologist. This report was verified electronically.
--- NOTE | 2017-04-14 11:20 | HHI.DS ---
Discharge Summary Admission Date Apr 13, 2017 at 13:14 Discharge Date: Apr 14, 2017 Admitting Diagnosis chest pain (1) Atypical chest pain Diagnosis: Principal ICD Codes: R07.89 - Other chest pain Status: Acute (2) Hx of coronary artery disease Diagnosis: Secondary ICD Codes: Z86.79 - History of coronary artery disease Status: Chronic CBC/BMP: 04/13/17 1100 04/13/17 1100 Significant Findings Laboratory Tests Test 04/13/17 11:00 04/13/17 15:16 04/13/17 16:40 Red Blood Count 3.88 MIL/MM3 (4.00-5.30) Mean Corpuscular Volume 100.8 FL (80.0-100.0) Mean Corpuscular Hemoglobin 34.1 PG (27.0-34.0) Neutrophils (%) (Auto) 76.6 % (16.0-70.0) Sodium Level 135 MEQ/L (136-145) Estimat Glomerular Filtration Rate 63 ML/MIN (>89) Troponin I LESS THAN 0.02 NG/ML LESS THAN 0.02 NG/ML LESS THAN 0.02 NG/ML Imaging Last Impressions Myocardial Perfusion Scan Nuc Med 04/14/17 0000 Signed Impressions: Service Date/Time: Friday, April 14, 2017 09:00 - CONCLUSION: Negative. No stress-induced ischemia. Wall motion within normal limits. RISK CATEGORY: Low William Wing MD Chest X-Ray 04/13/17 1111 Signed Impressions: Service Date/Time: Thursday, April 13, 2017 11:20 - CONCLUSION: Stable chest x-ray with biapical pleural thickening with calcification and interstitial lung changes in the lower lung zones. No acute finding is identified. William Sweeney MD PE at Discharge GENERAL: Alert WN, WD, NAD, pleasant, elderly female CV: RRR, without murmur, rub, gallop, no JVD, S1-S2 no S3-S4. RESP: Clear lungs throughout bilateral, no crackles, wheeze, rhonchi, symmetrical chest rise, nonlabored, able to speak in full sentences ABD: Soft, NT, ND, no masses, positive bowel tones EXT: Pulses +24, no dependent edema MS: Normal tone 4 extremities, nontender, no obvious deformities, full range of motion PSYCH: A+O 3, pleasant affect, appropriate speech, appropriate mood and affect , insight and judgment Hospital Course 86-year-old female with known coronary artery disease presented emergency room for further evaluation of intermittent chest pain and generalized weakness. Ruled out with serial EKGs and cardiac enzymes, proceed with chemical stress test which did not show signs of ischemia. Discharged home with follow-up with PCP and garment folder as previously instructed. Pt Condition on Discharge: Good Discharge Disposition: Discharge Home Discharge Instructions DIET: Follow Instructions for: Heart Healthy Diet Activities you can perform: Regular-No Restrictions Maty Martini Apr 14, 2017 11:19
--- NOTE | 2017-04-16 12:13 | TR ---
Date Performed: 04/14/2017 Time Performed: 09:56:45 DOCTOR: Keo Coy DRUG LIST: CLINICAL HISTORY: REASON FOR TEST: REASON FOR ENDING: OBSERVATION: CONCLUSION: Lexiscan stress test was performed under standard four minute protocol. Radionuclid e was injected one minute prior to ending the test. No electrocardiographic abormalities were present to suggest ischemia. Nuclear imaging and interpretation are pending. COMMENTS:
== END 2017-04-14 12:22 | disposition home or self-care (01) ==
LOC: NEPC 10:36 → NEDA 13:14 → NEPHCDU 15:53
PROVIDERS: ADMIT Internal Medicine Cardiovascular Disease; ATTEND Internal Medicine Cardiovascular Disease
DX: R07.89 Other chest pain (principal); R53.1 Weakness; R06.02 Shortness of breath; I25.10 Atherosclerotic heart disease of native coronary artery without angina pectoris; J44.9 Chronic obstructive pulmonary disease, unspecified; K21.9 Gastro-esophageal reflux disease without esophagitis; I10 Essential (primary) hypertension; J45.909 Unspecified asthma, uncomplicated; I25.2 Old myocardial infarction; R94.31 Abnormal electrocardiogram [ECG] [EKG]; E11.9 Type 2 diabetes mellitus without complications; I70.0 Atherosclerosis of aorta; I44.7 Left bundle-branch block, unspecified; H40.9 Unspecified glaucoma; M19.90 Unspecified osteoarthritis, unspecified site; Z95.5 Presence of coronary angioplasty implant and graft; Z79.899 Other long term (current) drug therapy; Z79.82 Long term (current) use of aspirin; Z79.02 Long term (current) use of antithrombotics/antiplatelets
CPT/HCPCS: 71010; 78452; 80048; 82550; 82552; 84484; 85025; 85610; 85730; 93005; 93017; 99285; A9502; G0378; J2785

== ENCOUNTER 2017-07-23 06:23 | Day surgery (SDC) | payer OTHER ==
[~2017-07-23] VITALS: Ht 149.9 cm; Wt 44.1 kg
[2017-07-23] VITALS (8 sets, daily range): BP systolic 115–147; BP diastolic 46–60; PULSE 52–60; RESP 18–20; TEMP 97.5–97.6; O2SAT 94–98
[~2017-07-23 06:23] MED LIST changes: -ASPI-110 PO; +ASPI1TAB57 PO
[2017-07-23] MEDS ORDERED: SODIUM CHLORIDE 2 ML FLUSH PRN IV FLUSH (07:00)
[2017-07-23] MEDS ORDERED: SODIUM CHLOR 0.9% 1000 ML IV SCH (07:00)
[2017-07-23] MEDS ORDERED: VENTAER INH (07:19)
[2017-07-23] MEDS ORDERED: ZANT150T2 PO (07:19)
[2017-07-23] MEDS ORDERED: LEXA10TA PO (07:19)
[2017-07-23] MEDS ORDERED: FLUT1SPR5 EACH NARE (07:19)
[2017-07-23 07:31] LABS: APTT (PATIENT) 26.4 SEC (24.3-30.1)
[2017-07-23] MEDS ORDERED: LIDOCAINE 1%/EPINEPHrine 1:100,000 SOLN 20 ML VIAL ONE (08:01)
[2017-07-23] MEDS ORDERED: MIDAZOLAM HCL 2 MG/2 ML VIAL ONE (08:09)
[2017-07-23] MEDS ORDERED: SODIUM CHLORIDE 2 ML FLUSH BID IV FLUSH SCH (09:00)
--- NOTE | 2017-07-23 09:27 | PD.RAD ---
Post CT Procedure Prog Note Pre Procedure Diagnosis: (1) Mass of left lung Post Procedure Diagnosis: (1) Mass of left lung Procedure Date: Jul 23, 2017 Supervising Radiologist: Manuelito Washington Anesthesia: Local, Analgesia, Conscious Sedation Plan of Activity Patient to Unit: ROPU Patient Condition: Good See PACS Report for procedural detail/treatment Biopsy Imaging Guidance: CT Side: Left Biopsy Procedure: Lung Specimen: Core Biopsy (18 gauge x 2) Findings: Touch prep on first bx Manuelito Washington MD Jul 23, 2017 09:27
[2017-07-23] MEDS ORDERED: oxyCODONE/ACETAMINOPHEN 5 MG/325 MG TAB PO PRN (09:30)
--- NOTE | 2017-07-23 09:43 | RADRPT ---
EXAM DATE/TIME: 07/23/2017 09:34 [facility] COMPARISON: CHEST SINGLE AP, April 13, 2017, 11:20. INDICATIONS : S/p left lung biopsy MEDICAL HISTORY : Diabetes mellitus type II. Myocardial infarction. Hypertension. SURGICAL HISTORY : Coronary artery stent. ENCOUNTER: Initial ACUITY: 1 day PAIN SCORE: 0/10 LOCATION: Bilateral chest FINDINGS: A single frontal expiratory view of the chest was performed. Left parahilar nodule is more distinct o n the current exam which may be due to some landen-lesional hemorrhage post biopsy. Otherwise, stable p leural-based calcifications in the upper lungs with chronic interstitial changes in both lung bases. No pneumothorax post biopsy. No confluent infiltrate. Heart size is upper limits of normal. Surgical clips in the right upper abdominal quadrant are characteristic of prior cholecystectomy. Osseous str uctures are intact. CONCLUSION: 1. No pneumothorax post biopsy. 2. Left perihilar pleural-based nodular density identified on CT is more discrete and identifiable on the current exam which may represent some perilesional hemorrhage post biopsy. 3. Otherwise stable with pleural-based calcifications in the apices likely representing prior asbesto s exposure. Chronic interstitial changes in both lung bases. Manuelito Washington MD on July 23, 2017 at 9:37 Board Certified Radiologist. This report was verified electronically.
--- NOTE | 2017-07-23 10:05 | RADRPT ---
EXAM DATE/TIME: 07/23/2017 08:54 [facility] COMPARISON: No previous studies available for comparison. INDICATIONS : Left lung mass. SEDATION TIME: 30 minutes BIOPSY SITE: Left MEDICATION(S): 1.) 1 mg midazolam (Versed) IV 2.) 50 mcg fentanyl (Sublimaze) IV DEVICE(S): 1.) 18 gauge Temno core biopsy needle MEDICAL HISTORY : Cardiovascular disease. Hypertension. Chronic obstructive pulmonary disease. SURGICAL HISTORY : Cholecystectomy Hysterectomy. Left endarectomy. ENCOUNTER: Initial ACUITY: 1 day PAIN SCORE: 0/10 LOCATION: Left chest A total of two core specimen(s) were obtained and sent to the laboratory for pathologic evaluation. PROCEDURE: 1. CT guided lung biopsy. 2. Conscious sedation with continuous EKG and oximetry monitoring. 3. EKG and oximetry remained stable throughout the procedure. Prior to the procedure informed consent was obtained. Any appropriate prior imaging studies were rev iewed. Using automated exposure control and adjustment of the mA and/or kV according to patient size, radiation dose was kept as low as reasonably achievable to obtain optimal diagnostic quality images. DICOM format image data is available electronically for review and comparison. The site was prepped in a sterile fashion. Full sterile technique was used, including cap, mask, sandy rile gloves and gown and a large sterile sheet. Hand hygiene and 2% chlorhexidine and/or betadine/al cohol prep was utilized per protocol for cutaneous antisepsis. The skin and subcutaneous tissues wer e infiltrated with local anesthetic solution. With CT guidance the previously identified target was localized. Biopsy was performed using the presc ribed needle as above. The first core was obtained and a touch prep performed before placing the hoang ple in formalin fixation. A second sample was then obtained and placed directly into the formalin. Ad equate hemostasis was obtained with compression at the puncture site. Follow-up CT scan reveals no pneumothorax. There was some perilesional hemorrhage, however. Conscious sedation was performed with the prescribed dosages and duration as above in the presence of an independent trained radiology nurse to assist in the monitoring of the patient. EKG and oximetry remained stable throughout the procedure. The patient tolerated the procedure well and there were no complications. The patient was sent to Radiology Outpatient Unit in stable condition. CONCLUSION: Uncomplicated CT guided biopsy. Manuelito Washington MD on July 23, 2017 at 10:02 Board Certified Radiologist. This report was verified electronically.
--- NOTE | 2017-07-23 12:07 | RADRPT ---
EXAM DATE/TIME: 07/23/2017 11:34 [facility] COMPARISON: CHEST EXPIRATION ONLY, July 23, 2017, 9:34. INDICATIONS : Evaluate for pneumothorax. Post left lung biopsy. MEDICAL HISTORY : Diabetes mellitus type II. Myocardial infarction. Hypertension. SURGICAL HISTORY : Coronary artery stent. ENCOUNTER: Subsequent ACUITY: 1 day PAIN SCORE: 0/10 LOCATION: chest FINDINGS: The cardiac silhouette is normal in transverse diameter. There are chronic fibrotic changes bilateral ly. Bilateral pleural calcification is present. There is no evidence of pneumothorax. CONCLUSION: No evidence of pneumothorax following lung biopsy. Keo Huerta MD on July 23, 2017 at 12:03 Board Certified Radiologist. This report was verified electronically.
== END 2017-07-23 14:12 | disposition home or self-care (01) ==
LOC: HRAD 06:23 → HRIP 06:33 → HRAD 14:12
PROVIDERS: ATTEND Internal Medicine
DX: C34.90 Malignant neoplasm of unspecified part of unspecified bronchus or lung (principal); I25.10 Atherosclerotic heart disease of native coronary artery without angina pectoris; I10 Essential (primary) hypertension; J44.9 Chronic obstructive pulmonary disease, unspecified; I25.2 Old myocardial infarction; R06.00 Dyspnea, unspecified; E11.9 Type 2 diabetes mellitus without complications; R07.89 Other chest pain; Z95.5 Presence of coronary angioplasty implant and graft
CPT/HCPCS: 32405; 71010; 77012; 85730; 88305; 88341; 88342; J2250; J3010; J7030

== ENCOUNTER 2017-07-31 12:29 | Emergency (ER) | payer OTHER ==
[~2017-07-31 12:29] MED LIST changes: +FLUT1SPR5 EACH NARE; -GABA100C4 PO; +LEXA10TA PO; +VENTAER INH; -VENTOLIN INHALER; +ZANT150T2 PO
[2017-07-31 12:31] VITALS: BP 141/63; PULSE 69; RESP 20; TEMP 98.5; O2SAT 96
--- NOTE | 2017-07-31 13:34 | PD ---
HPI Chief Complaint: Fall Time Seen by Provider: 12:46 Travel History International Travel<30 days: No Contact w/Intl Traveler<30days: No Traveled to known affect area: No History of Present Illness HPI The patient was seen and examined in the presence of the nurse. This patient was carrying shopping bags in the parking lot and tripped over the curb. She hit her head and face on the ground. She bit her lower lip. She complains of headache suffered from the fall. No neck pain. She takes aspirin Plavix daily. She has skin tears and laceration to her right knee. Severity is moderate. Duration 1 hour. No alleviating factors. Symptoms exacerbated by her antiplatelet agents. No LOC. PFSH Past Medical History Hx Anticoagulant Therapy: Yes Arthritis: Yes Asthma: Yes Autoimmune Disease: No Blood Disorders: No Heart Rhythm Problems: No Cancer: No Cardiac Catheterization: Yes (2013, 2 stents) Cardiovascular Problems: Yes (ME, STENTS X2) High Cholesterol: Yes Chemotherapy: No Congestive Heart Failure: No COPD: Yes Cerebrovascular Accident: No Diabetes: Yes (type II) Patient Takes Glucophage: No Diminished Hearing: No Endocrine: No Glaucoma: Yes Genitourinary: No Headaches: Yes Hypertension: Yes Immune Disorder: No Musculoskeletal: Yes Neurologic: Yes Psychiatric: No Reproductive: No Respiratory: Yes Immunizations Current: Yes Myocardial Infarction: Yes ?: Not Menopausal: Yes Past Surgical History Abdominal Surgery: Yes AICD: No Arteriovenous Shunt: No Body Medical Devices: 2 cardiac stents, bilat. legs Cardiac Surgery: Yes Cholecystectomy: Yes Coronary Artery Bypass Graft: No Coronary Stent: Yes Ear Surgery: No Endocrine Surgery: No Eye Surgery: No Genitourinary Surgery: Yes (T-SLING SURGERY) Gynecologic Surgery: No Hysterectomy: Yes Insulin Pump: No Joint Replacement: No Oral Surgery: No Pacemaker: No Thoracic Surgery: No Other Surgery: Yes Family History Family Myocardial Infarction: Yes (mother, brother) Social History Alcohol Use: No Tobacco Use: No Substance Use: No Allergies-Medications (Allergen,Severity, Reaction): Coded Allergies: adhesive (Verified Allergy, Severe, 07/31/17) bacitracin (Verified Allergy, Severe, 07/31/17) gramicidin D (Verified Allergy, Severe, 07/31/17) iodine (Verified Allergy, Severe, Anaphylaxis, 07/31/17) naproxen (Verified Allergy, Severe, 07/31/17) PT STATES INCORRECT, RELATES DOES NOT HAVE ALLERGY TO THIS MEDICATION. neomycin (Verified Allergy, Severe, 07/31/17) polymyxin B (Verified Allergy, Severe, 07/31/17) latex (Verified Allergy, Mild, Rash, 07/31/17) Iodinated Contrast- Oral and IV Dye (Verified Adverse Reaction, Severe, UNABLE TO SPEAK, 07/31/17) Uncoded Allergies: MERTHIALATE (Allergy, Severe, RASH, 08/06/07) JUNIPER PRODUCTS (Allergy, Mild, Rash, 03/07/05) Reported Meds & Prescriptions Reported Meds & Active Scripts Active Reported Zantac (Ranitidine HCl) 150 Mg Tab 150 Mg PO DAILY Lexapro (Escitalopram Oxalate) 10 Mg Tab 10 Mg PO HS Flonase Nasal [place] (Fluticasone Nasal [place]) 50 Mcg/Act [place] 50 Mcg EACH NARE BID Ventolin Hfa 18 GM Inh (Albuterol Sulfate) 90 Mcg/Act Aer 1 Puff INH DAILY PRN Tums (Calcium Carbonate (Antacid)) 500 Mg Chew 500 Mg CHEW BID Multiple Vitamin 1 Tab 1 Tab PO DAILY Singulair (Montelukast Sodium) 10 Mg Tab 10 Mg PO HS Nitrostat SL (Nitroglycerin) 0.4 Mg Subl 0.4 Mg SL Lipitor (Atorvastatin Calcium) 80 Mg Tab 80 Mg PO HS Metoprolol Tartrate 25 Mg Tab 50 Mg PO BID Advair Diskus Inh (Fluticasone-Salmeterol Inh) 250-50 Mcg/Blist Aer 1 Puff INH BID Rinse mouth after use. Plavix (Clopidogrel Bisulfate) 75 Mg Tab 75 Mg PO DAILY Aspirin 81 (Aspirin) 81 Mg Tabdr 81 Mg PO DAILY Review of Systems General / Constitutional: No: Fever Eyes: No: Visual changes HENT: Positive: Headaches Cardiovascular: No: Chest Pain or Discomfort Respiratory: No: Shortness of Breath Gastrointestinal: No: Abdominal Pain Genitourinary: No: Dysuria Musculoskeletal: Positive: Pain Skin: No Rash Neurologic: No: Weakness Psychiatric: No: Depression Endocrine: No: Polydipsia Hematologic/Lymphatic: No: Easy Bruising Physical Exam Narrative GENERAL: Pleasant elderly well-developed patient in the right of abrasions and skin tears and laceration . SKIN: Focused skin assessment reveals no rash and nodules. Skin is Warm and dry. HEAD: Normocephalic. Abrasion to the nasal bridge. No scalp laceration EYES: Pupils equal and round. No scleral icterus. No injection or drainage. ENT: No nasal bleeding or discharge. Mucous membranes pink and moist. Patient has a 1 cm laceration in the center of the lower lip. Does not include the vermilion border. No loose dentition. NECK: Trachea midline. No JVD. No midline tenderness CARDIOVASCULAR: Regular rate and rhythm. No murmur appreciated. RESPIRATORY: No accessory muscle use. Clear to auscultation. Breath sounds equal bilaterally. GASTROINTESTINAL: Abdomen soft, non-tender, nondistended. Hepatic and splenic margins not palpable. MUSCULOSKELETAL: No obvious deformities. No clubbing. No cyanosis. No edema. Scattering of ecchymosis across all 4 extremities. There is 2 small skin tears between the second and fourth knuckle of the right hand. No tenderness there. She has skin tear to the left patella without tenderness. There is a 6 cm laceration over the right patella with some tenderness. Some ecchymosis present as well. NEUROLOGICAL: Awake and alert. No obvious cranial nerve deficits. Motor grossly within normal limits. Normal speech. PSYCHIATRIC: Appropriate mood and affect; insight and judgment normal. Data Data Last Documented VS Vital Signs Date Time Temp Pulse Resp B/P (MAP) Pulse Ox O2 Delivery O2 Flow Rate FiO2 07/31/17 12:31 98.5 69 20 141/63 (89) [address] Brain W/O Iv Contrast(Rout) (07/31/17 ) Knee, Ltd (1 Or 2vws) (07/31/17 ) [facility] Medical Decision Making Medical Screen Exam Complete: Yes Emergency Medical Condition: Yes Medical Record Reviewed: Yes Differential Diagnosis Concussion, skull fracture, laceration, contusion Narrative Course I have reviewed the patient's electronic medical record. Patient is neurologically intact. I reviewed her right knee x-rays which show no fracture Brain CT is negative Procedure note: Patient gives verbal consent for repair. She has a 1 cm lower lip laceration. I closed it with one 3-0- Vicryl suture. Did not require anesthesia Tolerated well Will dissolve on its own Procedure note: Patient has right hand skin tear. I cleaned the area and there are 2 shallow skin tears One is between the second and third MCP and another is between the third and fourth MCP. I closed them both the Dermabond. They're both three-quarter centimeter Procedure note: Patient has a left knee skin tear. I cleaned the area and close the 2 horseshoe shaped skin tears with Dermabond after using tweezers to approximate the skin The skin is very thin and would not be amenable to suture repair The skin tears are 2.5 cm each Procedure note: Patient has a 6 cm right knee laceration The skin is very thin and not excellent for suture repair however given the length I decided to place 5 3-0 Vicryl sutures to help anchor laceration. No anesthesia required Patient tolerated this well Sutures placed after cleaning Then I applied Dermabond across the length of laceration Tolerated well Patient has a walker at home which I have advised her to use for several days. She should limit bending and stress on the knees. I don't want to put her in an immobilizer because I think that would make her likely to fall. Diagnosis Primary Impression: Head injury due to trauma Qualified Codes: S09.90XA - Unspecified injury of head, initial encounter Additional Impressions: Headache Qualified Codes: G44.319 - Acute post-traumatic headache, not intractable Contusion of knee, right Qualified Codes: S80.01XA - Contusion of right knee, initial encounter Laceration of knee, right Qualified Codes: S81.011A - Laceration without foreign body, right knee, initial encounter Additional Instructions: The patient was advised to follow up with their physician and return if they worsen. Med/Other Pt SpecificInfo: Other Disposition: 01 DISCHARGE HOME Condition: Stable Paul Dixon MD Jul 31, 2017 13:33
--- NOTE | 2017-07-31 13:45 | RADRPT ---
EXAM DATE/TIME: 07/31/2017 13:23 [facility] COMPARISON: No previous studies available for comparison. INDICATIONS : Tripped and fell. RADIATION DOSE: 61.38 CTDIvol (mGy) MEDICAL HISTORY : Cardiovascular disease. Hypertension. Chronic obstructive pulmonary disease. SURGICAL HISTORY : Coronary artery stent. Cholecystectomy.Hysterectomy. ENCOUNTER: Initial ACUITY: 1 day PAIN SCALE: 7/10 LOCATION: cranial TECHNIQUE: Multiple contiguous axial images were obtained of the head. Using automated exposure control and adj ustment of the mA and/or kV according to patient size, radiation dose was kept as low as reasonably a chievable to obtain optimal diagnostic quality images. DICOM format image data is available electro nically for review and comparison. FINDINGS: CEREBRUM: Mild diffuse cerebral volume loss. Mild periventricular ischemic white matter demyelination. The vent ricles are normal for degree of atrophy. No evidence of midline shift, mass lesion, hemorrhage or ac [place] infarction. No extra-axial fluid collections are seen. POSTERIOR FOSSA: The cerebellum and brainstem are intact. The 4th ventricle is midline. The cerebellopontine angle i s unremarkable. EXTRACRANIAL: The visualized portion of the orbits is intact. SKULL: The calvaria is intact. No evidence of skull fracture. CONCLUSION: 1. No acute intracranial abnormality. Oz Alegria MD on July 31, 2017 at 13:42 Board Certified Radiologist. This report was verified electronically.
--- NOTE | 2017-07-31 13:54 | RADRPT ---
EXAM DATE/TIME: 07/31/2017 13:34 [facility] COMPARISON: No previous studies available for comparison. INDICATIONS : Right knee pain after tripping and falling today. MEDICAL HISTORY : Diabetes mellitus type II. Myocardial infarction. Hypertension SURGICAL HISTORY : Coronary artery stent. ENCOUNTER: Initial ACUITY: 1 day PAIN SCORE: 6/10 LOCATION: Right patella. FINDINGS: Two view examination of the right knee demonstrates no evidence of fracture or dislocation. Bony min eralization is normal. The suprapatellar soft tissues have a normal configuration. There is soft tis krystal swelling in the infrapatellar region. Atherosclerotic calcifications of the SFA. CONCLUSION: 1. No acute fracture or dislocation. Oz Alegria MD on July 31, 2017 at 13:52 Board Certified Radiologist. This report was verified electronically.
== END 2017-07-31 15:26 | disposition home or self-care (01) ==
LOC: PHED 12:29
DX: S01.511A Laceration without foreign body of lip, initial encounter (principal); S81.011A Laceration without foreign body, right knee, initial encounter; G44.319 Acute post-traumatic headache, not intractable; E78.00 Pure hypercholesterolemia, unspecified; W01.0XXA Fall on same level from slipping, tripping and stumbling without subsequent striking against object, initial encounter; Y92.481 Parking lot as the place of occurrence of the external cause; Z79.02 Long term (current) use of antithrombotics/antiplatelets
CPT/HCPCS: 12002; 12011; 13121; 70450; 73560

== ENCOUNTER 2017-12-28 12:33 | Inpatient (IN) | END 2018-01-02 19:35 | DRG 469 | DX: S72.002A Fracture of unspecified part of neck of left femur, initial encounter for closed fracture (principal); J96.21 Acute and chronic respiratory failure with hypoxia; J81.0 Acute pulmonary edema; Z99.81 Dependence on supplemental oxygen; W18.30XA Fall on same level, unspecified, initial encounter; J44.9 Chronic obstructive pulmonary disease, unspecified; E83.51 Hypocalcemia; D53.9 Nutritional anemia, unspecified; I25.10 Atherosclerotic heart disease of native coronary artery without angina pectoris; Z95.5 Presence of coronary angioplasty implant and graft; I25.2 Old myocardial infarction; Z85.118 Personal history of other malignant neoplasm of bronchus and lung; K21.9 Gastro-esophageal reflux disease without esophagitis; E11.9 Type 2 diabetes mellitus without complications; Z79.02 Long term (current) use of antithrombotics/antiplatelets; Z79.82 Long term (current) use of aspirin; Z87.891 Personal history of nicotine dependence ==